=== PATIENT | female | born 1960 | race African-American/Black ===

== ENCOUNTER 2017-03-08 15:35 | Inpatient (IN) ==
--- NOTE | 2017-03-08 16:07 | EKG Report ---
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
[2017-03-08 16:11] LABS: Basophils # 0.1 10*3/uL (0.0-0.2); Basophils % 0.6 % (0.0-0.8); Eosinophils # 0.2 10*3/uL (0.0-0.87); Eosinophils % 1.1 % (0.00-10.9); Hematocrit 37.7 VOL% (35.7-47.0); Hemoglobin 12.1 GM/DL (12.0-16.0); Immature Granulocytes % 0.6 %; Lymphocytes # 7.3 10*3/uL (1.4-4.0); Lymphocytes % 46.4 % (21.3-54.2); Mean Corpuscular HGB Conc 32.1 GM/DL (32-36); Mean Corpuscular Hemoglobin 26 PG (27-34); Mean Corpuscular Volume 81.1 FL (87-102); Mean Platelet Volume 9.4 FL (9.6-12.0); Monocytes # 0.9 10*3/uL (0.11-0.8); Neutrophils # 7.1 10*3/uL (1.4-7.4); Neutrophils % 45.3 % (38.7-73.9); Platelet Count 361 T/CUMM (130-400); Red Blood Count 4.65 MC/CUMM (3.8-5.5); Red Cell Distribution Width 14.6 % (9.3-17.3); White Blood Count 15.7 T/CUMM (4-12)
--- NOTE | 2017-03-08 16:18 | CT Report ---
CT of the head without contrast. Indication: CVA. Comparison: May 02, 2014. The ventricles are normal in size and configuration. There is no mass effect, midline shift, or area of hemorrhage. No ischemic lesions are seen. The calvarium is intact. The mastoid air cells are clear. 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 There is ethmoid mucosal thickening. Impression: No acute intracranial abnormality is seen. Mild paranasal sinus disease. The CT exam was performed using one or more of the following dose reduction techniques: Automated exposure control, adjustment of the mA and/or kV according to patient size, or use of iterative reconstruction technique. PROCEDURE INTERPRETED AT [facility] DEPARTMENT OF RADIOLOGY Final Report Signed by: Dr. Mely Espinoza
--- NOTE | 2017-03-08 16:22 | XRay Report ---
Portable chest. Indication: CVA. Comparison: October 27, 2016. The heart and mediastinal contours are unremarkable. The pulmonary vasculature is normal. There is no consolidation, pneumothorax, or pleural effusion. The osseous structures are unremarkable. Impression: No abnormality is seen. PROCEDURE INTERPRETED AT [facility] DEPARTMENT OF RADIOLOGY Final Report Signed by: Dr. Mely Espinoza
[2017-03-08 16:28] LABS: Blood Urea Nitrogen 13 MG/DL (7-18); Glucose 95 MG/DL (74-106); Osmolality,Calculated 276.5 MOS/KG (273-304); Potassium 2.9 MMOL/L (3.5-5.1); Sodium 139 MMOL/L (136-145); Troponin I Only < 0.015 NG/ML (0.00-0.045)
--- NOTE | 2017-03-08 17:51 | Emergency Department Note ---
ILauren Emily, am scribing for, and in the presence of, Rusty Butts MD 16:10. Benjamín Hebert Sunil, MD, personally performed the services described in this documentation, ascribed by Riana Aguilar in my presence, and it is both accurate and complete 751 . Arrival - Arrival Chief Complaint: Neuro Stated Complaint: Neuro ED Nursing Triage Note: c/o right neck pain, nevarez and numbness to face. also c/o weakness to right side. no slurred speech noted. received steroid shot in right neck Sunday for shoulder pain Mode of Arrival: Stretcher Limitations: No Limitations Source: Patient - History of Present Illness HPI Narrative: Pt is a 56 y/o female who came to ED with c/o numbness in right side of body that started mildly at midnight but has worsened to this morning. Pt states now experiencing right sided facial droop, severe NEVAREZ, pointing out numbness to the right temporal area, and unable to hold objects in right hand. Pt states he speech was altered this morning. Pt takes Metformin daily. Pt states she is disabled due to screws and rods in her back. Onset (ago): hour(s) Consistency: constant Severity: moderate Severity scale (1-10): 6 Quality: other (weakness) Allergies/Adverse Reactions: Allergies Allergy/AdvReac Type Severity Reaction Status Date / Time bupropion [From Wellbutrin] Allergy Intermediate RASH Verified 10/31/16 06:55 baclofen Allergy RASH Verified 10/31/16 06:55 butorphanol [From Stadol] Allergy ITCHING Verified 10/31/16 06:55 cefazolin [From Ancef] Allergy ITCHING Verified 10/31/16 06:55 cephalexin [From Keflex] Allergy ITCHING Verified 10/31/16 06:55 codeine Allergy ITCHING Verified 10/31/16 06:55 Hydromorphone [From Dilaudid] Allergy ITCHING Verified 10/31/16 06:55 meperidine [From Demerol] Allergy ITCHING Verified 10/31/16 06:55 morphine Allergy ITCHING Verified 10/31/16 06:55 plastic tape Allergy RASH Uncoded 10/31/16 06:55 Home Medications: Home Medications Medication Instructions Recorded Confirmed Type Eszopiclone [Lunesta] 3 mg PO BEDTIME 12/31/15 03/08/17 History HYDROcodone/ACETAMIN 10-325 [[place] 1 tablet PO Q4H PRN #30 10/31/16 03/08/17 Rx 10-325] Metformin HCl [Metformin HCl] 1,000 mg PO BID 03/08/17 03/08/17 History Potassium Chloride [Potassium 20 meq PO BID 03/08/17 03/08/17 History Chloride] hydroCHLOROthiazide 12.5 mg PO QAM 03/08/17 03/08/17 History [Hydrochlorothiazide] Review of System - Review of System 12 point system: reviewed and no additional remarkable complaints except as stated - Review of System Constitutional: Absent: chills, fever Respiratory: Absent: respiratory distress Cardiovascular: Absent: chest pain Gastrointestinal: Absent: abdominal pain, nausea, vomiting Musculoskeletal: Absent: arm pain, neck pain Skin: Absent: rash Neurological: Present: headache, weakness (right sided with facial droop of same side), numbness (with difficulty holding onto things), other (altered speech). Absent: confusion, abnormal gait, vertigo Medical,Surgical,& Family Hx - Medical History Neurology: No history of: Seizures HEENT: History of: Eye Problem (right eye infection) Endocrine: History of: Thyroid Disorder Rheumatology: History of;: Rheumatoid Arthritis Respiratory: History of: Asthma Genitourinary: History of: Recurring Urinary Tract Infections (11/2015) Gastrointestinal: History of: Diverticulitis/ Diverticulosis, GI Problems ( hernia) Musculoskeletal: History of: Back/Neck Problems, Herniated Disk Hematology: History of: Anemia Other: History of: Anesthesia Reactions (headaches after anesthesia) - Surgical History HEENT Surgeries: Surgical HX of: Eye Surgery (skin growth removed), Tonsilectomy & Adenoidectomy Abdominal Surgeries: Surgical HX of: Appendectomy, Cholecystectomy, Colonoscopy (2016) Reproductive Surgeries: Surgical HX of;: Breast Surgery (shahid breast bx), Section (x1), Hysterectomy, Tubal Ligation Comment Only: Gynecologic Surgery (a & P repair 1998,2008) Orthopedic Surgeries: Surgical HX of;: Implanted Devices (rods in back, screws) , Spinal Surgery () - Family History Family History: Reports;: Family Cancer (DAD GP), Family Diabetes (PARENTS SISTER), Family Hypertension (PARENTS BROTHER), Family Stroke (MOM) - Social History Smoking Status: Never smoker Frequency of Alcohol Use: None Type of Drug Use: None Marital Status: Single Lives With:: Alone Functional capacity: independent ambulation Exam Vital Signs: Vital Signs Temperature 96.6 F L 03/08/17 16:00 Pulse Rate 96 H 03/08/17 16:00 Respiratory Rate 19 03/08/17 16:00 Blood Pressure 169/92 03/08/17 16:00 O2 Sat by Pulse Oximetry 97 03/08/17 16:00 - General General appearance: alert, in no apparent distress - Head Head exam: Present: atraumatic, normocephalic - Eye Eye exam: Present: PERRL, EOMI - ENT ENT exam: Present: mucous membranes moist. Absent: mucous membranes dry - Neck Neck exam: Present: full ROM, trachea midline - Chest Chest inspection: Present: symmetric chest wall rise - Respiratory Respiratory exam: Present: normal lung sounds bilaterally. Absent: respiratory distress - Cardiovascular Cardiovascular exam: Present: regular rate, normal rhythm, normal heart sounds - Extremities Exam Extremities exam: Present: full ROM. Absent: pedal edema - Neurological Exam Neurological exam: Present: alert, oriented X3, CN II-XII intact, other (left sided facial droop; pronator drift on right side with muscle power of 3; no deviation of speech) - Psychiatric Psychiatric exam: Present: normal affect, normal mood - Skin Skin exam: Present: warm, dry Results - Labs CBC & BMP: 03/08/17 15:46 03/08/17 15:46 Lab Results: I have reviewed the patients labs Labs: Laboratory Tests 03/08/17 03/08/17 15:46 15:46 WBC 15.7 H RBC 4.65 Hgb 12.1 Hct 37.7 MCV 81.1 L MCH 26 L Plt Count 361 MPV 9.4 L Lymph # (Auto) 7.3 H Citrus # (Auto) 0.9 H Sodium 139 Potassium 2.9 L Chloride 102 Carbon Dioxide 27 Creatinine 0.90 Total Creatine Kinase 213 H CK-MB (CK-2) < 1.0 Troponin I < 0.015 - Impressions EKG normal sinus rhythm CT scan of the head is normal this patient looks like having a CVA admitted her under the hospitalist - Diagnostic Findings Procedure: Chest x-ray: report reviewed by me (No abnormality is seen.), CT: report reviewed by me (Head wo con: No acute intracranial abnormality is seen. Mild paranasal sinus disease.) Disposition Clinical Impression: CVA (cerebral vascular accident) Case discussed with: patient Disposition: Still a Patient
[2017-03-08] MEDS ORDERED: LABETALOL 20 MG/4 ML SYRINGE IV PRN (18:12)
[2017-03-08] MEDS ORDERED: ENOXAPARIN 40 MG/0.4 ML SYRINGE SUBCUT SCH (18:30)
--- NOTE | 2017-03-08 18:49 | Hospitalist History & Physical ---
<Ailyn Batista - Last Filed: 03/08/17 18:41> Assessment and Plan (1) Weakness of right side of body Status: Acute Assessment and plan: The patient has a degree of right-sided weakness. CT at the time of presentation was essentially unremarkable for any acute intracranial processes. We will order MRI of the brain in a.m. for further evaluation. We will consult neurology to evaluate. Current Visit: Yes History of Present Illness Chief complaint: Right-sided neck pain/headache/right-sided facial numbness/ right-sided weak History of present illness: This is a chronically ill 56-year-old female that presented to the ED at [facility] via EMS from the [facility] for further evaluation of right-sided weakness. Patient has a medical history significant for diabetes mellitus, depression, rheumatoid arthritis, chronic urinary tract infections, diverticulitis, diverticulosis,hiatal hernia anemia, asthma, cervicalgia, and chronic constipation. Patient has a surgical history significant for section, low back disc surgery, tonsillectomy, hysterectomy, and removal of benign breast lesion. The patient reported the onset of symptoms 24 hours prior to presentation. The patient reports that she was seen by her orthopedic doctor Dr. Tovar on yesterday. During the encounter , the patient was given an injection in her right shoulder for arthritic pain. The patient reported that proceeded to go home and resume her normal activities. She reported that around midnight last night, she was awakened out of her sleep with the above symptoms. She presented to her primary care physician this morning for further evaluation. She was assessed and subsequently transported to [facility] for further evaluation. The patient was assessed at the time of ED presentation. The patient was noted to be hypertensive at the time of ED presentation with a blood pressure recorded at 169/92. Labs were obtained which were significant for white blood cell count 15.7, potassium 2.9 and total creatinine kinase 213. Chest x-ray was essentially unremarkable for the presence of consolidation, pneumothorax, pleural effusion. CT head was unremarkable for the presence of any acute intracranial abnormalities. After brief discussion with both Dr. Butts and Dr. Coronel, the patient will be admitted to the hospitalist service For continuation of care. Due to the patient's presenting symptoms, a neurology consultation has been requested. Home medications have been reviewed and reconciled. CODE STATUS discussed; patient is FULL CODE. Home Medications Medication Instructions Recorded Confirmed Type Eszopiclone [Lunesta] 3 mg PO BEDTIME 12/31/15 03/08/17 History HYDROcodone/ACETAMIN 10-325 [[place] 1 tablet PO Q4H PRN #30 10/31/16 03/08/17 Rx 10-325] Metformin HCl [Metformin HCl] 1,000 mg PO BID 03/08/17 03/08/17 History Potassium Chloride [Potassium 20 meq PO BID 03/08/17 03/08/17 History Chloride] hydroCHLOROthiazide 12.5 mg PO QAM 03/08/17 03/08/17 History [Hydrochlorothiazide] Allergies Allergy/AdvReac Type Severity Reaction Status Date / Time bupropion [From Wellbutrin] Allergy Intermediate RASH Verified 10/31/16 06:55 baclofen Allergy RASH Verified 10/31/16 06:55 butorphanol [From Stadol] Allergy ITCHING Verified 10/31/16 06:55 cefazolin [From Ancef] Allergy ITCHING Verified 10/31/16 06:55 cephalexin [From Keflex] Allergy ITCHING Verified 10/31/16 06:55 codeine Allergy ITCHING Verified 10/31/16 06:55 Hydromorphone [From Dilaudid] Allergy ITCHING Verified 10/31/16 06:55 meperidine [From Demerol] Allergy ITCHING Verified 10/31/16 06:55 morphine Allergy ITCHING Verified 10/31/16 06:55 plastic tape Allergy RASH Uncoded 10/31/16 06:55 Medical,Surgical,& Family Hx - Medical History Neurology: No history of: Seizures HEENT: History of: Eye Problem (right eye infection) Endocrine: History of: Thyroid Disorder Rheumatology: History of;: Rheumatoid Arthritis Respiratory: History of: Asthma Genitourinary: History of: Recurring Urinary Tract Infections (11/2015) Gastrointestinal: History of: Diverticulitis/ Diverticulosis, GI Problems ( hernia) Musculoskeletal: History of: Back/Neck Problems, Herniated Disk Hematology: History of: Anemia Other: History of: Anesthesia Reactions (headaches after anesthesia) - Surgical History HEENT Surgeries: Surgical HX of: Eye Surgery (skin growth removed), Tonsilectomy & Adenoidectomy Abdominal Surgeries: Surgical HX of: Appendectomy, Cholecystectomy, Colonoscopy (2016) Reproductive Surgeries: Surgical HX of;: Breast Surgery (shahid breast bx), Section (x1), Hysterectomy, Tubal Ligation Comment Only: Gynecologic Surgery (a & P repair 1998,2008) Orthopedic Surgeries: Surgical HX of;: Implanted Devices (rods in back, screws) , Spinal Surgery () - Family History Family History: Reports;: Family Cancer (DAD GP), Family Diabetes (PARENTS SISTER), Family Hypertension (PARENTS BROTHER), Family Stroke (MOM) - Social History Smoking Status: Never smoker Frequency of Alcohol Use: None Type of Drug Use: None Marital Status: Single Lives With:: Alone Functional capacity: independent ambulation 12 point system: reviewed and no additional remarkable complaints except as stated Exam - Constitutional Vitals: Period Temp Pulse Resp BP Sys/Scott Pulse Ox Last 24 Hr 96.6 F-96.6 F 85-98 17-19 110-169/67-96 97-99 General appearance: normal weight, no acute distress - Head Head exam: Present: normal inspection, normocephalic, atraumatic - Eye Eye exam: Present: EOMI. Absent: conjunctival injection Pupils: Present: DANE, normal accommodation - ENT ENT exam: Present: normal exam, normal external ear exam, normal oropharynx - Neck Neck exam: Present: normal inspection. Absent: lymphadenopathy, meningismus, thyromegaly - Respiratory Respiratory exam: Present: clear to auscultation bilaterally. Absent: rales, rhonchi, stridor, wheezes - Cardiovascular Cardiovascular exam: Present: regular rate and rhythm. Absent: carotid bruit, diastolic murmur, gallop, JVD, rubs, systolic murmur - GI/Abdominal GI/Abdominal exam: Present: normal bowel sounds, soft - Extremities Exam Extremities exam: Present: normal inspection, normal capillary refill, full ROM. Absent: edema - Back Exam Back exam: Present: normal inspection - Neurological Exam Neurological exam: Present: alert, oriented X3, CN II-XII intact, other (Left- sided facial droop; pronator drift noted on the right side strength 3/5) - Psychiatric Psychiatric exam: Present: anxious - Skin Skin exam: Present: normal color, warm, dry Results - Labs CBC & BMP: 03/08/17 15:46 03/08/17 15:46 Lab Results: I have reviewed the past 24 hour labs Quality Measures - Stroke Onset of Symptoms Date: 03/08/17 Onset of Symptoms Time: 05:00 Symptom Onset Unknown: No <HomerMessi - Last Filed: 03/08/17 18:56> History of Present Illness History of present illness: Ms. Garcia is a 56 year old female Exam - Constitutional Vitals: Period Temp Pulse Resp BP Sys/Scott Pulse Ox Last 24 Hr 96.6 F-96.6 F 85-98 17-19 110-169/67-96 97-99 Results - Labs CBC & BMP: 03/08/17 15:46 03/08/17 15:46
[2017-03-08 20:03] LABS: Cholesterol 233 MG/DL (50-200); HDL Cholesterol 65 MG/DL (40-60); Risk Ratio 3.58; Triglycerides 153 MG/DL (2-150); Troponin I Only < 0.015 NG/ML (0.00-0.045); VLDL CHOLESTEROL 30.6 MG/DL
[2017-03-08] MEDS: POTASSIUM CHLORIDE 20 MEQ TABLET PO SCH (20:39)
[2017-03-08] MEDS: metFORMIN 500 MG TABLET PO SCH (20:42)
[2017-03-08] MEDS ORDERED: ZALEPLON 5 MG CAPSULE PO SCH (21:00)
[2017-03-08] MEDS ORDERED: KETOROLAC 30 MG/1 ML VIAL IV ONE (23:45)
[2017-03-09] MEDS ORDERED: POTASSIUM CHLORIDE 20 MEQ TABLET PO ONE (00:27)
[2017-03-09] MEDS ORDERED: ATORVASTATIN 40 MG TABLET PO SCH (09:00)
[2017-03-09] MEDS ORDERED: ASPIRIN EC 81 MG TABLET PO SCH (09:00)
[2017-03-09] MEDS ORDERED: hydroCHLOROthiazide 12.5 MG CAPSULE PO SCH (09:00)
[2017-03-09 09:12] LABS: Basophils # 0.1 10*3/uL (0.0-0.2); Basophils % 0.7 % (0.0-0.8); Eosinophils # 0.3 10*3/uL (0.0-0.87); Eosinophils % 2.8 % (0.00-10.9); Hematocrit 34.5 VOL% (35.7-47.0); Hemoglobin 11.2 GM/DL (12.0-16.0); Immature Granulocytes % 0.7 %; Immature Granulocytes Absolute 0.07 #; Lymphocytes % 48.5 % (21.3-54.2); Mean Corpuscular HGB Conc 32.5 GM/DL (32-36); Mean Corpuscular Hemoglobin 26 PG (27-34); Mean Platelet Volume 9.5 FL (9.6-12.0); Monocytes # 0.7 10*3/uL (0.11-0.8); Monocytes % 6.7 % (1.7-12.7); Neutrophils # 4.2 10*3/uL (1.4-7.4); Neutrophils % 40.6 % (38.7-73.9); Platelet Count 341 T/CUMM (130-400); Red Blood Count 4.26 MC/CUMM (3.8-5.5); Red Cell Distribution Width 14.5 % (9.3-17.3); White Blood Count 10.3 T/CUMM (4-12)
--- NOTE | 2017-03-09 09:13 | Neurology Consult Note ---
History of Present Illness History of present illness: 56-year-old right-handed -[place] lady with past medical history significant for diabetes mellitus, depression, rheumatoid arthritis, chronic urinary tract infections, diverticulitis, diverticulosis, hiatal hernia, anemia , asthma, cervicalgia, and chronic constipation admitted the hospital with somewhat acute onset of right-sided pain and weakness and numbness started yesterday morning. She had right shoulder injection done by Sunday morning and she did fine up until yesterday morning when he she developed the above-mentioned symptoms. She is a little weak in the right side as well. She is still complaining of pain in the right shoulder. Blood pressure is slightly high. No speech difficulties, swallowing problems or vision difficulties reported. A CT of the head reveals no acute abnormalities. Home Medications Medication Instructions Recorded Confirmed Type Eszopiclone [Lunesta] 3 mg PO BEDTIME 12/31/15 03/08/17 History HYDROcodone/ACETAMIN 10-325 [[place] 1 tablet PO Q4H PRN #30 10/31/16 03/08/17 Rx 10-325] Metformin HCl [Metformin HCl] 500 mg PO BID 03/08/17 03/08/17 History Potassium Chloride [Potassium 20 meq PO BID 03/08/17 03/08/17 History Chloride] hydroCHLOROthiazide 12.5 mg PO QAM 03/08/17 03/08/17 History [Hydrochlorothiazide] Allergies Allergy/AdvReac Type Severity Reaction Status Date / Time bupropion [From Wellbutrin] Allergy Intermediate RASH Verified 10/31/16 06:55 baclofen Allergy RASH Verified 10/31/16 06:55 butorphanol [From Stadol] Allergy ITCHING Verified 10/31/16 06:55 cefazolin [From Ancef] Allergy ITCHING Verified 10/31/16 06:55 cephalexin [From Keflex] Allergy ITCHING Verified 10/31/16 06:55 codeine Allergy ITCHING Verified 10/31/16 06:55 Hydromorphone [From Dilaudid] Allergy ITCHING Verified 10/31/16 06:55 meperidine [From Demerol] Allergy ITCHING Verified 10/31/16 06:55 morphine Allergy ITCHING Verified 10/31/16 06:55 plastic tape Allergy RASH Uncoded 10/31/16 06:55 12 point system: reviewed and no additional remarkable complaints except as stated Medical,Surgical,& Family Hx - Medical History Neurology: No history of: Seizures HEENT: History of: Eye Problem (right eye infection) Endocrine: History of: Thyroid Disorder Rheumatology: History of;: Rheumatoid Arthritis Respiratory: History of: Asthma Genitourinary: History of: Recurring Urinary Tract Infections (11/2015) Gastrointestinal: History of: Diverticulitis/ Diverticulosis, GI Problems ( hernia) Musculoskeletal: History of: Back/Neck Problems, Herniated Disk Hematology: History of: Anemia Other: History of: Anesthesia Reactions (headaches after anesthesia) - Surgical History HEENT Surgeries: Surgical HX of: Eye Surgery (skin growth removed), Tonsilectomy & Adenoidectomy Abdominal Surgeries: Surgical HX of: Appendectomy, Cholecystectomy, Colonoscopy (2016) Reproductive Surgeries: Surgical HX of;: Breast Surgery (shahid breast bx), Section (x1), Hysterectomy, Tubal Ligation Comment Only: Gynecologic Surgery (a & P repair 1998,2008) Orthopedic Surgeries: Surgical HX of;: Implanted Devices (rods in back, screws) , Spinal Surgery () - Family History Family History: Reports;: Family Cancer (DAD GP), Family Diabetes (PARENTS SISTER), Family Hypertension (PARENTS BROTHER), Family Stroke (MOM) - Social History Smoking Status: Never smoker Frequency of Alcohol Use: None Type of Drug Use: None Exam - Constitutional Vitals: Period Temp Pulse Resp BP Sys/Scott Pulse Ox Last 24 Hr 96.6 F-97.7 F 70-98 16-20 100-169/53-96 95-99 Exam: GENERAL: Patient is in no acute distress. NECK: Neck is supple. There is no JVD. No carotid bruits present. No thyroid masses. CVS: First and second heart sounds are normal. There is no S3 present. Regular rate and rhythm. RESPIRATORY: Lungs are clear to auscultation without any rales or rhonchi. ABDOMEN: Soft and non-tender. Bowel sounds are present. There is no hepatosplenomegaly. EXT: There is no palpable edema. Peripheral pulses are present. Skin: No rashes Central Nervous system: General: Alert, awake and Oriented x 3 Speech: Fluent Comprehension: Intact and normal Facial expressions: Normal Cranial Nerves: CN1/Olfactory: Normal CN II/ Optic: Normal, Visual Kevin unreliable CN III, and : DANE & EOMI CN V: Normal & intact CN VII: face is symmetric CNVIII: Normal CN XI/X/XI/XII: Intact and Normal Motor: Bulk and Tone is normal. Strength in the right 3-4/5 with some giveaway weakness Strength in the left 5/5 Sensory: Grossly intact for all the modalities of PP, LT and temp sense Reflexes: 1+ and symmetrical Cerebellar function: Normal finger to nose and heel to hamlin testing. Toes: Equivocal Gait: Not assessed at this time Results - Labs CBC & BMP: 03/08/17 15:46 03/08/17 15:46 Assessment and Plan (1) Weakness of right side of body Status: Acute Assessment and plan: Etiology not clear. I doubt she had a stroke. MRI has been ordered. Will follow up in the testing Consult PT and OT Continue aspirin and Lovenox for now Current Visit: Yes
[2017-03-09 09:38] LABS: Albumin 3.3 G/DL (3.4-5.0); Bilirubin,Direct 0.11 MG/DL (0.0-0.20); Bilirubin,Indirect 0.6 MG/DL (0.0-1.0); Bilirubin,Total 0.7 MG/DL (0.2-1.0); Total Protein 6.7 G/DL (6.4-8.3)
--- NOTE | 2017-03-09 09:56 | Ultrasound Report ---
Carotid artery ultrasound Indication: Right-sided weakness Comparison: None available Color Doppler flow and spectral analysis was performed. Findings: Minimal amount of atherosclerotic plaque is present in both proximal internal carotid arteries. Right peak systolic velocity: Right CCA: 61 cm/s Right proximal Internal Carotid Artery is 70 cm/s. Ratio of flow is 0.49 Right distal Internal Carotid is 111 cm/s . Left peak systolic velocity: Left CCA: 80 cm/s Left proximal Internal carotid Artery is 62 cm/s . Ratio of flow is 0.45 Left distal Internal carotid Artery is 38 cm/s Bilateral antegrade vertebral flow is seen. Impression: No evidence of hemodynamically significant stenosis is seen, 0-49% estimated stenosis. Consensus conference on the carotid ultrasound criteria used. Ultrasound images were captured and stored. PROCEDURE INTERPRETED AT [facility] DEPARTMENT OF RADIOLOGY Final Report Signed by: Dr. Moises Aburto
[2017-03-09 10:41] LABS: Calcium 8.6 MG/DL (8.5-10.1); Osmolality,Calculated 282.1 MOS/KG (273-304); Potassium 3.8 MMOL/L (3.5-5.1)
[2017-03-09] MEDS: POTASSIUM CHLORIDE 20 MEQ TABLET PO SCH (11:24)
[2017-03-09] MEDS: metFORMIN 500 MG TABLET PO SCH (11:24)
--- NOTE | 2017-03-09 11:43 | Magnetic Resonance Report ---
Exam: MR head/brain wo con Date: 03/09/2017 Comparison: CT brain 03/08/2017 and carotid sonogram 03/09/2017 Indication: CVA symptoms weakness Technical: 1.5 Kyleigh magnet Axial T1 pre-and ADC, DWI, FLAIR, gradient echo and FSE T2 Sagittal T1 precontrast, Coronal FSE T2 Contrast: 0 cc Dotarem Findings: Exam reveals no acute ADC/ diffusion imaging abnormality. The brainstem, cerebellum exhibit normal signal characteristics. The cerebral hemispheres exhibit demonstrated with very minimal FLAIR signal abnormalities in the periventricular subcortical white matter regions. The ventricles demonstrate normal signal characteristics. The corpus callosum is unremarkable. The seventh and eighth cranial nerves and cerebral pontine angles are intact. The pituitary gland, infundibulum and optic chiasm are intact. The paranasal sinuses exhibit abnormal signal in the ethmoid air cells. The remaining paranasal sinuses demonstrate normal signal characteristics. The mastoid sinuses are unremarkable. The globes and intra-and extraconal spaces are unremarkable. Impression: 1. No acute hemorrhage infarction or mass effect 2. Bilateral ethmoid sinus disease 3. Very minimal small vessel changes in the periventricular subcortical white matter regions bilaterally PROCEDURE INTERPRETED AT [facility] DEPARTMENT OF RADIOLOGY Final Report Signed by: Dr. Manuel Robert
[2017-03-09 11:47] VITALS: BP 107/63
--- NOTE | 2017-03-09 12:11 | Discharge Summary ---
Hospital Course - Hospital Course Hospital Course: This is a chronically ill 56-year-old female that presented to the ED at [facility] via EMS from the [facility] on the afternoon of March 08, 2017 for further evaluation of right- sided weakness. Patient has a medical history significant for diabetes mellitus , depression, rheumatoid arthritis, chronic urinary tract infections, diverticulitis, diverticulosis,hiatal hernia, anemia, asthma, cervicalgia, and chronic constipation. Patient has a surgical history significant for section, low back disc surgery, tonsillectomy, hysterectomy, and removal of benign breast lesion. The patient reported the onset of symptoms 24 hours prior to presentation. The patient reports that she was seen by her orthopedic doctor Dr. Tovar on yesterday. During the encounter, the patient was given an injection in her right shoulder for arthritic pain. The patient reported that proceeded to go home and resume her normal activities. She reported that around midnight last night, she was awakened out of her sleep with the above symptoms. She presented to her primary care physician this morning for further evaluation. She was assessed and subsequently transported to [facility] for further evaluation. The patient was assessed at the time of ED presentation. The patient was noted to be hypertensive at the time of ED presentation with a blood pressure recorded at 169/92. Labs were obtained which were significant for white blood cell count 15.7, potassium 2.9 and total creatinine kinase 213. Chest x-ray was essentially unremarkable for the presence of consolidation, pneumothorax, pleural effusion. CT head was unremarkable for the presence of any acute intracranial abnormalities. The patient was subsequently admitted to the hospitalist service for continuation of care. Due to the severity of the patient's presenting symptoms, a neurology consultation was requested. Prophylactic aspirin and lipid lowering agents were initiated. The patient was evaluated by neurology and recommendations were given. The patient underwent MRI of the brain without contrast on this morning which was essentially unremarkable. The patient's condition is stable. She has not experienced any significant overnight events. Today, we feel that she is indeed appropriate for discharge to follow-up with her primary care physician as directed. The patient is discharged with instructions to continue aspirin 81 mg daily and atorvastatin 40 mg by mouth at bedtime. Diagnosis - Discharge Diagnosis (1) Weakness of right side of body Status: Resolved (2) CVA (cerebral vascular accident) Status: Resolved Specialty Discharge - Follow Up or Referrals - Speciality Discharge Instructions Hospitalist Instructions: Follow-up with your primary care physician in 5-7 days. Continue to take all medications as ordered. Discharge Plan - Discharge Data Disposition: Disch To Home/Self Care Condition at Discharge: Stable Discharge Diet: advance to your usual diet Activity: resume usual activities as tolerated Hygiene: no restrictions Weight Bearing at Discharge: full weight bearing Driving: no restrictions Contact your physician if you experience:: fever over 101, Difficulty voiding, Redness or swelling, Nausea/Vomiting, Shortness of breath, Bleeding, pain uncontrolled by pain medications - Discharge Medications New Atorvastatin [Lipitor] 40 mg PO DAILY #30 tablet Potassium Chloride Cap/Tab [K Dur] 20 meq PO BID tablet Aspirin EC Tab 81 mg PO DAILY #30 tablet Continue Eszopiclone [Lunesta] 3 mg PO BEDTIME Potassium Chloride 20 meq PO BID Metformin HCl 500 mg PO BID HYDROcodone/ACETAMIN 10-325 [[place] 10-325] 1 tablet PO Q4H PRN #30 PRN Reason: Pain hydroCHLOROthiazide [Hydrochlorothiazide] 12.5 mg PO QAM - Follow Up or Referral - Forms/Instructions Exam - Constitutional Vitals: Period Temp Pulse Resp BP Sys/Scott Pulse Ox Last 24 Hr 96.6 F-97.7 F 70-98 16-20 100-169/53-96 95-99 General appearance: normal weight, no acute distress - Head Head exam: Present: normal inspection, normocephalic, atraumatic - Eye Eye exam: Present: EOMI, conjunctival injection Pupils: Present: DANE, normal accommodation - ENT ENT exam: Present: normal exam, normal external ear exam, normal oropharynx - Neck Neck exam: Present: normal inspection. Absent: lymphadenopathy, meningismus, tenderness, thyromegaly - Respiratory Respiratory exam: Present: clear to auscultation bilaterally. Absent: rales, rhonchi, stridor, wheezes - Cardiovascular Cardiovascular exam: Present: bradycardia, regular rate and rhythm. Absent: carotid bruit, diastolic murmur, gallop, JVD, rubs, systolic murmur - GI/Abdominal GI/Abdominal exam: Present: normal bowel sounds, soft - Extremities Exam Extremities exam: Present: normal inspection, normal capillary refill, full ROM. Absent: edema - Back Exam Back exam: Present: normal inspection - Neurological Exam Neurological exam: Present: alert, oriented X3, CN II-XII intact - Psychiatric Psychiatric exam: Present: normal affect, normal mood - Skin Skin exam: Present: normal color, warm, dry Discharge Results Procedures and tests throughout hospitalization: MRI of the brain on March 09, 2017 essentially unremarkable for the presence of any acute intracranial processes. Labs on day of discharge: Labs from last 24 hours 03/09/17 03/09/17 03/09/17 09:00 08:40 08:40 WBC RBC Hgb Hct MCV MCH MCHC RDW Plt Count MPV Neut % (Auto) Lymph % (Auto) [place] % (Auto) Eos % (Auto) Baso % (Auto) Neut # (Auto) Lymph # (Auto) [place] # (Auto) Eos # (Auto) Baso # (Auto) Immature Gran % Nucleated RBC % Immature Gran # Nucleated RBCs # Immature Plt Fraction Sodium 142 Cancelled Potassium 3.8 Cancelled Chloride 104 Cancelled Carbon Dioxide 31 Cancelled Anion Gap 10.8 Cancelled BUN 15 Cancelled Creatinine 0.80 Cancelled GFR Calculation 105 Cancelled BUN/Creatinine Ratio 18.00 Cancelled Glucose 84 Cancelled Hemoglobin A1c Calculated Osmolality 282.1 Cancelled Calcium 8.6 Cancelled Total Bilirubin 0.70 Direct Bilirubin 0.110 Indirect Bilirubin 0.6 AST 18 ALT 22 Alkaline Phosphatase 98 Total Creatine Kinase CK-MB (CK-2) Troponin I Total Protein 6.7 Albumin 3.3 L Triglycerides Cholesterol LDL Cholesterol VLDL Cholesterol HDL Cholesterol Heart Disease Risk Ratio 03/09/17 03/09/17 03/08/17 08:40 01:02 22:43 WBC 10.3 D RBC 4.26 Hgb 11.2 L Hct 34.5 L MCV 81.0 L MCH 26 L MCHC 32.5 RDW 14.5 Plt Count 341 MPV 9.5 L Neut % (Auto) 40.6 Lymph % (Auto) 48.5 [place] % (Auto) 6.7 Eos % (Auto) 2.8 Baso % (Auto) 0.7 Neut # (Auto) 4.2 Lymph # (Auto) 5.0 H [place] # (Auto) 0.7 Eos # (Auto) 0.3 Baso # (Auto) 0.1 Immature Gran % 0.7 Nucleated RBC % 0.0 Immature Gran # 0.07 Nucleated RBCs # 0.00 Immature Plt Fraction 0.0 Sodium Potassium Chloride Carbon Dioxide Anion Gap BUN Creatinine GFR Calculation BUN/Creatinine Ratio Glucose Hemoglobin A1c Calculated Osmolality Calcium Total Bilirubin Direct Bilirubin Indirect Bilirubin AST ALT Alkaline Phosphatase Total Creatine Kinase CK-MB (CK-2) Troponin I < 0.015 < 0.015 Total Protein Albumin Triglycerides Cholesterol LDL Cholesterol VLDL Cholesterol HDL Cholesterol Heart Disease Risk Ratio 03/08/17 03/08/17 03/08/17 19:32 15:46 15:46 WBC RBC Hgb Hct MCV MCH MCHC RDW Plt Count MPV Neut % (Auto) Lymph % (Auto) [place] % (Auto) Eos % (Auto) Baso % (Auto) Neut # (Auto) Lymph # (Auto) [place] # (Auto) Eos # (Auto) Baso # (Auto) Immature Gran % Nucleated RBC % Immature Gran # Nucleated RBCs # Immature Plt Fraction Sodium 139 Potassium 2.9 L Chloride 102 Carbon Dioxide 27 Anion Gap 12.9 BUN 13 Creatinine 0.90 GFR Calculation 91 BUN/Creatinine Ratio 14.00 Glucose 95 Hemoglobin A1c 6.7 H Calculated Osmolality 276.5 Calcium 9.0 Total Bilirubin Direct Bilirubin Indirect Bilirubin AST ALT Alkaline Phosphatase Total Creatine Kinase 213 H CK-MB (CK-2) < 1.0 Troponin I < 0.015 < 0.015 Total Protein Albumin Triglycerides 153 H Cholesterol 233 H LDL Cholesterol 144.0 VLDL Cholesterol 30.6 HDL Cholesterol 65 H Heart Disease Risk Ratio 3.58 03/08/17 15:46 WBC 15.7 H RBC 4.65 Hgb 12.1 Hct 37.7 MCV 81.1 L MCH 26 L MCHC 32.1 RDW 14.6 Plt Count 361 MPV 9.4 L Neut % (Auto) 45.3 Lymph % (Auto) 46.4 [place] % (Auto) 6.0 Eos % (Auto) 1.1 Baso % (Auto) 0.6 Neut # (Auto) 7.1 Lymph # (Auto) 7.3 H [place] # (Auto) 0.9 H Eos # (Auto) 0.2 Baso # (Auto) 0.1 Immature Gran % 0.6 Nucleated RBC % 0.0 Immature Gran # 0.10 Nucleated RBCs # 0.00 Immature Plt Fraction 0.0 Sodium Potassium Chloride Carbon Dioxide Anion Gap BUN Creatinine GFR Calculation BUN/Creatinine Ratio Glucose Hemoglobin A1c Calculated Osmolality Calcium Total Bilirubin Direct Bilirubin Indirect Bilirubin AST ALT Alkaline Phosphatase Total Creatine Kinase CK-MB (CK-2) Troponin I Total Protein Albumin Triglycerides Cholesterol LDL Cholesterol VLDL Cholesterol HDL Cholesterol Heart Disease Risk Ratio DS: Provider Date of admission: 03/08/17 17:54 Primary care physician: Delfina Yanez Attending physician on admission: Ghassan Edwards MD Consults: 03/08/17 18:12 Consult to Case Mgmt/Social Srvs [CONS] Routine Reason for Case Mgmt/Social Srvs: Discharge Planning Consult to Occupational Therapy [CONS] Routine Reason for Occupational Therapy: Evaluate and Treat Consult Comment: Stroke Consult to Physical Therapy [CONS] Routine Reason for Physical Therapy: Evaluate and Treat Consult Comment: stroke Consult to Speech Therapy [CONS] Routine Reason for Speech Therapy: CVA Consult Comment: with/without possible aspiration 03/08/17 18:13 Consult to Physician [CONS] Routine Comment: Consulting Provider: Sidney Walker When should Consulting Provider be notified: In am Consult to Specialist Group: Neurology 03/08/17 19:44 Consult to Physician [CONS] Routine Comment: right arm pain Consulting Provider: Aleah Spencer Discharging clinician: Ailyn Batista CNP
== END 2017-03-09 13:59 | disposition home or self-care (01) | DRG 69 ==
LOC: EDBD → EDUNIT# → N.ED 15:35 → SUATTDRO 17:54 → INTOOBSV 17:54 → OBSVTOIN 17:54 → N.EDINP 17:54 → N.2E 18:58
PROVIDERS: ADMIT Family Medicine; ATTEND Hospitalist

== ENCOUNTER 2020-09-29 08:36 | Observation (INO) ==
[2020-09-29] MEDS ORDERED: ONDANSETRON 4 MG/2 ML VIAL IV STA (09:13)
[2020-09-29] MEDS ORDERED: PANTOPRAZOLE 40 MG VIAL IV STA (09:13)
[2020-09-29] MEDS ORDERED: SODIUM CHLORIDE 0.9% 1,000 ML IV STA (09:13)
[2020-09-29 09:28] LABS: Basophils # 0.1 10*3/uL (0.0-0.2); Basophils % 0.6 % (0.0-0.8); Eosinophils # 0.3 10*3/uL (0.0-0.87); Eosinophils % 3.4 % (0.00-10.9); Hematocrit 35.9 VOL% (35.7-47.0); Hemoglobin 11.2 GM/DL (12.0-16.0); Immature Granulocytes % 0.5 %; Immature Granulocytes Absolute 0.04 #; Lymphocytes # 3.2 10*3/uL (1.4-4.0); Lymphocytes % 37.9 % (21.3-54.2); Mean Corpuscular HGB Conc 31.2 GM/DL (32-36); Mean Corpuscular Volume 82.7 FL (87-102); Mean Platelet Volume 8.8 FL (9.6-12.0); Monocytes % 8.7 % (1.7-12.7); Neutrophils % 48.9 % (38.7-73.9); Platelet Count 359 T/CUMM (130-400); Red Blood Count 4.34 MC/CUMM (3.8-5.5); Red Cell Distribution Width 14.9 % (9.3-17.3); White Blood Count 8.5 T/CUMM (4-12)
[2020-09-29 09:39] LABS: PT Patient Result 10.6 SECS (9.8-11.9); Partial Thromboplastin Time 25.1 SECS (23.9-33.8)
[2020-09-29 09:54] LABS: Albumin 3.4 G/DL (3.4-5.0); Bilirubin,Total 0.4 MG/DL (0.2-1.0); Calcium 9.3 MG/DL (8.5-10.1); Osmolality,Calculated 271.8 MOS/KG (273-304); Potassium 3.2 MMOL/L (3.5-5.1); Total Protein 7.9 G/DL (6.4-8.2)
[2020-09-29 10:05] LABS: Eosinophils 2 % (0-10); Hypochromasia 1+; Lymphocytes 47 % (20-55); Microcytosis 1+; Segmented Neutrophils 43 % (50-85); Total Cells Counted 100
[2020-09-29 10:08] LABS: Platelet Estimate Normal
[2020-09-29] MEDS ORDERED: GLUCAGON 1 MG VIAL IM PRN ×2 (11:21→14:20)
[2020-09-29] MEDS ORDERED: DEXTROSE 50% 25 GM/50 ML VIAL IV PRN ×2 (11:21→14:20)
[2020-09-29] MEDS ORDERED: ONDANSETRON 4 MG/2 ML VIAL IV PRN (11:21)
[2020-09-29] MEDS: SODIUM CHLORIDE 0.9% 1,000 ML IV SCH (12:10)
[2020-09-29] MEDS ORDERED: CYCLOBENZAPRINE 10 MG TABLET PO PRN (14:13)
[2020-09-29 14:43] LABS: Hematocrit 35.4 VOL% (35.7-47.0)
[2020-09-29] MEDS: INSULIN LISPRO 100 UNIT/ML SUBCUT SCH ×2 (15:44→20:42)
[2020-09-29] MEDS: POTASSIUM CHLORIDE 20 MEQ TABLET PO PRN (18:29)
[2020-09-29] MEDS: POLYETHYLENE GLYCOL POWDER 17 GM PACK PO SCH (20:45)
[2020-09-29] MEDS: DOCUSATE SODIUM 100 MG CAPSULE PO SCH (20:45)
[2020-09-29] MEDS ORDERED: SENNA 8.6 MG TABLET PO SCH (21:00)
[2020-09-29] MEDS ORDERED: ZALEPLON 5 MG CAPSULE PO SCH (21:00)
[2020-09-29 21:05] LABS: Hemoglobin 11.3 GM/DL (12.0-16.0)
[2020-09-30] MEDS: SODIUM CHLORIDE 0.9% 1,000 ML IV SCH (04:40)
[2020-09-30 06:00] LABS: Basophils # 0.1 10*3/uL (0.0-0.2); Basophils % 0.8 % (0.0-0.8); Eosinophils # 0.4 10*3/uL (0.0-0.87); Hematocrit 34.3 VOL% (35.7-47.0); Hemoglobin 10.7 GM/DL (12.0-16.0); Immature Granulocytes % 0.4 %; Immature Granulocytes Absolute 0.03 #; Lymphocytes # 3.3 10*3/uL (1.4-4.0); Lymphocytes % 44.1 % (21.3-54.2); Mean Corpuscular HGB Conc 31.2 GM/DL (32-36); Mean Corpuscular Volume 82.7 FL (87-102); Mean Platelet Volume 9.1 FL (9.6-12.0); Monocytes % 9.9 % (1.7-12.7); Neutrophils % 39.8 % (38.7-73.9); Platelet Count 327 T/CUMM (130-400); Red Blood Count 4.15 MC/CUMM (3.8-5.5); White Blood Count 7.4 T/CUMM (4-12)
[2020-09-30 06:39] LABS: Calcium 8.9 MG/DL (8.5-10.1); Osmolality,Calculated 275.4 MOS/KG (273-304); Potassium 3.2 MMOL/L (3.5-5.1)
[2020-09-30 07:41] VITALS: BP 103/54
[2020-09-30] MEDS: DOCUSATE SODIUM 100 MG CAPSULE PO SCH (08:10)
[2020-09-30] MEDS: POLYETHYLENE GLYCOL POWDER 17 GM PACK PO SCH (08:10)
[2020-09-30 08:41] LABS: Hematocrit 36.4 VOL% (35.7-47.0); Hemoglobin 11.4 GM/DL (12.0-16.0)
[2020-09-30] MEDS: INSULIN LISPRO 100 UNIT/ML SUBCUT SCH ×2 (08:42→13:31)
[2020-09-30] MEDS ORDERED: PANTOPRAZOLE 40 MG TABLET PO SCH (09:00)
[2020-09-30] MEDS ORDERED: VITAMIN E 400 UNIT CAPSULE PO SCH (09:00)
[2020-09-30] MEDS ORDERED: OMEGA 3 ACID ETHYL ESTERS 1 GM CAPSULE PO SCH (09:00)
[2020-09-30] MEDS ORDERED: MULTIVITAMIN (CENTRUM) TABLET PO SCH (09:00)
[2020-09-30] MEDS ORDERED: HYDROCORTISONE 25 MG SUPP RECTAL SCH (10:00)
[2020-09-30] MEDS ORDERED: ACETAMINOPHEN 325 MG TABLET PO PRN (10:09)
[2020-09-30] MEDS ORDERED: LINACLOTIDE 145 MCG CAPSULE PO SCH (10:15)
[2020-09-30] MEDS: POTASSIUM CHLORIDE 20 MEQ TABLET PO PRN (10:40)
[2020-10-01 18:40] LABS: CDT Result Negative (Negative); CDT Specimen Source STOOL
== END 2020-09-30 13:56 | disposition home or self-care (01) ==
LOC: N.EDINP 08:36 → N.ED 08:36 → N.EDINP 13:49 → N.5E 13:57
PROVIDERS: ADMIT Hospitalist; ATTEND Hospitalist